=== PATIENT | male | born 1950 | race Caucasian/White ===

== ENCOUNTER → 2019-04-24 | Outpatient (CLI) | payer MEDICARE, SELFPAY ==
[2019-03-30 11:01] VITALS: BMI 29.9
--- NOTE | 2019-04-24 12:50 | ECHOD_ITS ---
Reason For Study: CAD/ASHD, S/P CABG Procedure This was a 2D Doppler, Color Flow transthoracic echocardiogram. Exam performed in department. Left Ventricle Mildly dilated left ventricle. The estimated ejection fraction is 45-50 %. Stage 1 diastolic dysfunction. Infero-Basal: Mildly hypokinetic. Mid-anteroseptal : Mildly hypokinetic. Right Ventricle Mildly dilated right ventricle. Normal systolic function. Atria Normal left atrium. Normal right atrium. Normal atrial septum. Mitral Valve The mitral valve is structurally normal. No prolapse or stenosis seen. Trivial mitral valve insufficiency. Tricuspid Valve Normal tricuspid valve. Unable to estimate RV systolic pressure due to insufficient tricuspid regurgitant envelope. Aortic Valve Trisinus/trileaflet aortic valve. Mild diffuse aortic valve thickening. Mild (1+) aortic valve insufficiency. Pulmonic Valve Normal pulmonic valve. Great Vessels Normal aortic root. Normal arch. Normal inferior vena cava. Inferior vena cava collapse with sniff. Pericardium/Pleural No pericardial effusion. MMode/2D Measurements & Calculations LVIDd: 5.3 cm IVSd: 1.2 cm Ao root diam: 3.5 cm LVIDs: 3.9 cm LVPWd: 1.2 cm RVDd: 3.6 cm FS: 27.0 % LAV(MOD-bp): 61.1 ml LA A4 area: 20.0 cm2 LA dimension(2D): 4.6 cm LAV(MOD-bp) Indexed: 28.4 ml/m2 LAV(MOD-sp2): 63.8 ml LAV(MOD-sp4): 59.1 ml RA A4 area: 16.9 cm2 Time Measurements MV dec time: 0.19 sec Doppler Measurements & Calculations MV E max eric: 74.5 cm/sec Ao V2 max: 140.6 cm/sec AI max eric: 316.4 cm/sec MV A max eric: 89.9 cm/sec Ao max P.9 mmHg AI max P.0 mmHg MV E/A: 0.83 AI dec slope: 140.8 cm/sec2 AI P1/2t: 657.9 msec LV V1 max: 123.1 cm/sec PA V2 max: 85.1 cm/sec LV V1 max P.1 mmHg Interpretation Summary Mildly dilated left ventricle. The estimated ejection fraction is 45-50 %. Stage 1 diastolic dysfunction. Infero-Basal: Mildly hypokinetic Mid-anteroseptal : Mildly hypokinetic Trivial mitral valve insufficiency. Unable to estimate RV systolic pressure due to insufficient tricuspid regurgitant envelope. Mild (1+) aortic valve insufficiency. Compared to echo report dated 12/05/2014, no appreciable changes noted. Ordering Physician: Larry Cevallos Referring Physician: OTD Performed By: Alma Fofana RDCS, RVT
== END | disposition home or self-care (01) ==
PROVIDERS: Referring Provider Internal Medicine Cardiovascular Disease; Visit Provider Internal Medicine Cardiovascular Disease
DX: I25.10 Atherosclerotic heart disease of native coronary artery without angina pectoris (principal)
CPT/HCPCS: 93306

== ENCOUNTER → 2019-04-27 | Outpatient (CLI) | payer MEDICARE, SELFPAY ==
[2019-03-30 11:01] VITALS: BMI 29.9
--- NOTE | 2019-04-27 10:15 | STE_ITS ---
Reason For Study: CAD Stress Results Protocol: [facility] Protocol Maximum Predicted HR: 152 bpm Target HR: 129 bpm % Maximum Predicted HR: 91 % DurationHeart Rate Stage (mm:ss) (bpm) BP Comment Baseline 82 110/64No Chest Pain [facility] Protocol Stage I 3:00 107 136/70No Chest Pain; Mild Dyspnea [facility] Protocol Stage II 3:00 133 150/72No Chest Pain; Mild to Moderate Dyspnea [facility] Protocol Stage III 0:30 139 / No Chest Pain; Moderate Dyspnea Recovery 80 116/68No Chest Pain Stress Duration: 6:30 mm:ss Maximum Stress HR: 139 bpm METS: 8 Baseline Echocardiogram Findings The estimated ejection fraction is 45 %. Stress Echo Wall motion Data Resting WM Intermediate WM Stress WM Resting Wall Motion Wall Motion Stress No regional wall motion No regional wall motion abnormalities noted. abnormalities noted. EKG Data The baseline ECG displays normal sinus rhythm. The patient exercised according to the regular [facility] protocol for a total duration of 6:30. The maximum heart rate attained was 139 beats per minute. This was 91% of maximum predicted heart rate. The patient exercised into stage 3 of the [facility] protocol. During stress, there were no ST or T wave changes noted to suggest ischemia. No clinical angina was noted. Interpretation Summary The estimated ejection fraction is 45 %. Normal, adequate, treadmill echocardiogram. Negative for ischemia by EKG and echocardiographic criteria. No anginal symptoms noted. No arrhythmias noted. Appropriate blood pressure response to exercise. Average exercise capacity for age. Test terminated due to the leg discomfort. Final LVEF of 65%. Ordering Physician: Larry Cevallos Referring Physician: Out of Town Doctor Performed By: Jazlyn Pires, MANUEL, RVT
== END | disposition home or self-care (01) ==
PROVIDERS: Referring Provider Internal Medicine Cardiovascular Disease; Visit Provider Internal Medicine Cardiovascular Disease
DX: I25.10 Atherosclerotic heart disease of native coronary artery without angina pectoris (principal); Z95.1 Presence of aortocoronary bypass graft
CPT/HCPCS: 93017; 93350